=== PATIENT | female | born 1965 | race Two or more races ===

== ENCOUNTER 2021-03-08 16:40 | Emergency (ER) | payer MEDICAID, OTHER ==
[~2021-03-08] VITALS: Ht 160 cm; Wt 61.7 kg
[2021-03-08] MEDS ORDERED: LORazepam 0.5 MG TAB PO ONE (17:15)
[2021-03-08 18:38] LABS: Urine Bacteria NONE SEEN /hpf (None Seen); Urine Blood Negative /uL (Negative); Urine Specific Gravity 1.004 (1.001-1.035); Urine WBC 1 /hpf (0 - 5)
[2021-03-08 18:58] LABS: Amphetamine Screen, Urine NEGATIVE (NEGATIVE); Barbiturate Scree,Urine NEGATIVE (NEGATIVE); Benzodiazephine Screen, Urine NEGATIVE (NEGATIVE); Cannabinoid Screen, Urine POSITIVE (NEGATIVE); Cocaine Screen, Urine NEGATIVE (NEGATIVE); Opiate Scree,Urine NEGATIVE (NEGATIVE); Phencyclidine Screen, Urine NEGATIVE (NEGATIVE)
[2021-03-08 20:46] LABS: Basophils # (auto) 0.2 10 ^3/uL (0-0.2); Basophils % (auto) 2.7 % (0.0-2.0); Eosinophils # (auto) 0.2 10 ^3/uL (0-0.8); Eosinophils % (auto) 2.6 % (0.0-7.0); Hematocrit 40.2 % (36.0-46.0); Hemoglobin 13.6 g/dL (12.2-16.2); Lymphocytes # (auto) 2.8 10 ^3/uL (0.4-5.4); Lymphocytes % (auto) 32.1 % (10.0-50.0); Mean Corpuscular Hemoglobin 31.6 pg (28.0-32.0); Mean Corpuscular Hgb Conc. 33.8 g/dL (32.0-36.0); Mean Corpuscular Volume 93.7 fL (80.0-100.0); Monocytes # (auto) 0.5 10 ^3/uL (0-1.3); Monocytes % (auto) 5.3 % (0.0-12.0); Neutrophils # (auto) 5.1 10 ^3/uL (1.6-8.6); Neutrophils % (auto) 57.3 % (37.0-80.0); Nucleated Red Blood Cells % 0.2 %; Red Blood Cells 4.29 10^6/uL (4.0-5.20); Red Cell Distribution Width 14.4 % (11.8-14.3); White Blood Cell 8.9 10^3/uL (4.4-10.8)
[2021-03-08 20:49] LABS: Albumin 4.1 g/dL (3.4-5.0); BUN/Creatinine Ratio 15.3; Calcium 8.8 mg/dL (8.5-10.1); Potassium 3.7 mmol/L (3.5-5.1)
[2021-03-08 20:51] LABS: Bilirubin, Total 0.2 mg/dL (0.2-1.0); Total Protein 7.4 g/dL (6.4-8.2)
[2021-03-08 20:54] LABS: Salicylate 4.9 mg/dL (2.8-20.0)
[2021-03-08 21:01] LABS: Acetaminophen < 2.0 ug/mL (10-30)
[2021-03-10] MEDS ORDERED: LORazepam 0.5 MG TAB PO ONE (16:45)
[2021-03-11] MEDS ORDERED: LORazepam 0.5 MG TAB PO ONE (22:00)
[2021-03-12] MEDS ORDERED: LORazepam 0.5 MG TAB PO ONE (18:45)
[2021-03-13] MEDS ORDERED: LORazepam 0.5 MG TAB ONE (01:59)
[2021-03-13] MEDS ORDERED: FLUoxetine HCL 20 MG CAP PO ONE (10:30)
[2021-03-13] MEDS ORDERED: LEVOTHYROXINE SODIUM 50 MCG TAB PO ONE (10:30)
[2021-03-13] MEDS ORDERED: FLUoxetine HCL 20 MG CAP ONE (19:00)
[2021-03-13] MEDS ORDERED: LEVOTHYROXINE SODIUM 50 MCG TAB ONE (19:01)
[2021-03-14] MEDS ORDERED: TEMAZEPAM 15 MG CAP PO ONE (00:45)
[2021-03-14 08:00] VITALS: BP 113/64
== END 2021-03-14 21:05 | disposition left against medical advice (07) ==
LOC: ER 16:40
DX: T43.591A Poisoning by other antipsychotics and neuroleptics, accidental (unintentional), initial encounter (principal); R45.851 Suicidal ideations; F32.9 Major depressive disorder, single episode, unspecified; F10.10 Alcohol abuse, uncomplicated; R94.31 Abnormal electrocardiogram [ECG] [EKG]; E03.9 Hypothyroidism, unspecified; E78.5 Hyperlipidemia, unspecified; F41.9 Anxiety disorder, unspecified; Y90.8 Blood alcohol level of 240 mg/100 ml or more; Z20.822 Contact with and (suspected) exposure to COVID-19; Y92.89 Other specified places as the place of occurrence of the external cause
CPT/HCPCS: 36415; 71046; 80053; 80307; 80320; 80329; 81001; 84443; 85025; 87426; 93005; 99285; C9803; U0003